=== PATIENT | female | born 2000 | race Caucasian/White ===

== ENCOUNTER → 2019-05-13 | Outpatient (REF) | payer OTHER ==
[2019-05-13 20:06] LABS: CHLAMYDIA DNA AMPLIFICATION NEGATIVE (NEGATIVE); GC DNA AMPLIFICATION NEGATIVE (NEGATIVE)
== END ==
LOC: M LAB REF 17:03
PROVIDERS: ATTEND Advanced Practice Midwife
DX: Z34.02 Encounter for supervision of normal first pregnancy, second trimester (principal)

== ENCOUNTER → 2019-05-27 | Outpatient (CLI) | payer OTHER ==
--- NOTE | 2019-05-27 22:42 | REP ---
Clinical: Anatomical evaluation. Comparison: None . Findings: Examination demonstrates a single live intrauterine in breech presentation. motion is identified by technologist. Placenta is noted anterior and grade zero without evidence for placenta previa or abruption. Amniotic fluid volume is normal. Cervix measures 4.1 cm in length and appears closed. No evidence for nuchal cord. Gestational age by LMP 20 weeks 6 days with CJ 10/08/2019 . Gestational age by current measurements 21 weeks 3 days with CJ 10/04/2019 . FHR equals 141 beats per minute. BPD 5.1 cm 21 weeks 3 days HC 18.8 cm 21 weeks 0 days AC 18.1 cm 23 weeks 0 days FL 3.5 cm 21 weeks 0 days HL 3.3 cm 20 weeks 6 days HC/AC ratio 1.04 Estimated weight 462 grams ( 83rd percentile based on age by LMP ). Anatomical assessment demonstrates normal structures including cranium, choroid plexus, cavum, cerebellum/posterior fossa, facial features, lungs, four-chamber heart/ventricular outflow tracts, diaphragm, stomach, cord insertion/three-vessel cord, bladder, and extremities. Limited evaluation of the kidneys and spine due to positioning. Impression: Single live intrauterine in breech presentation demonstrating appropriate interval growth. Limited evaluation of the kidneys and spine may warrant reevaluation and follow-up. Remainder of the anatomical assessment is complete and normal. Electronically Signed by Edgar Spears MD 05/27/2019 10:33 P
== END ==
LOC: M RAD 09:01 → EDUNIT# 09:30
PROVIDERS: ATTEND Advanced Practice Midwife
DX: Z36.89 Encounter for other specified antenatal screening (principal); Z3A.21 21 weeks gestation of pregnancy

== ENCOUNTER → 2019-07-03 | Outpatient (CLI) | payer OTHER ==
[2019-07-03 14:37] LABS: HEMOGLOBIN 9.9 g/dl (12.0-15.5); MEAN CORPUSCULAR HEMOGLOBIN 32.2 pg (27.0-33.0); MEAN CORPUSCULAR VOLUME 97.7 fl (80.0-96.0); PLATELET COUNT, AUTOMATED 202 10^3/uL (150-450); RED BLOOD COUNT 3.07 10^6/uL (4.00-5.40); WHITE BLOOD COUNT 7.5 10^3/uL (4.0-10.0)
--- NOTE | 2019-07-03 15:27 | REP ---
Obstetric sonography: History: Followup anatomy. Findings: Scanning through the gravid uterus demonstrates a viable single intrauterine gestation in a cephalic lie. motion is observed and heart rate is recorded at 147 beats per minute. An anterior grade 0 placenta is seen without evidence of previa or abruption. Amniotic fluid is subjectively normal. Closed cervical length is 3.8 cm, viewed transabdominally. No extrauterine abnormalities observed. There has been appropriate interval growth. No anomaly is seen. The following anatomic structures are identified and felt to be unremarkable: cranium, choroid plexus, cavum, cerebellum and posterior fossa, face and profile, lungs, four-chamber heart with left and right ventricular outflow tract views, diaphragm, left-sided stomach, abdominal wall cord insertion, three-vessel umbilical cord, kidneys and bladder, spine, upper and lower extremities. Biometry chart: BPD 6.9 cm = 27 weeks 5 days HC 25.3 cm = 27 weeks 3 days AC 22.8 cm = 27 weeks 1 day FL 5.0 cm = 26 weeks 6 days HL 4.4 cm = 26 weeks 2 days HC/AC ratio normal 1.11. Cephalic index normal 0.76. Estimated weight 1032 grams, 2 pounds 4 ounces, 71st percentile for 26 weeks 1 day. Impression: Viable single intrauterine gestation at 27 weeks 1 day by today's composite criteria. Expected gestational age estimate based on prior sonography 26 weeks 5 days. CJ by prior sonography October 04, 2019. In conjunction with prior sonography, anatomic survey is felt to be complete. Electronically Signed by Ahsan Angel MD 07/03/2019 09:04 P
[2019-07-04 11:30] LABS: HEPATITIS C VIRUS ABY INDEX 0.1 INDEX (<0.8)
== END ==
LOC: M RAD 10:19
PROVIDERS: ATTEND Advanced Practice Midwife
DX: Z36.89 Encounter for other specified antenatal screening (principal); Z3A.27 27 weeks gestation of pregnancy

== ENCOUNTER → 2019-07-08 | Outpatient (REF) | payer OTHER | LOC: M LAB REF 13:17 | PROVIDERS: ATTEND Advanced Practice Midwife | DX: Z34.02 Encounter for supervision of normal first pregnancy, second trimester (principal) ==

== ENCOUNTER → 2019-07-30 | Outpatient (REF) | payer OTHER | LOC: M LAB REF 13:16 | PROVIDERS: ATTEND Advanced Practice Midwife | DX: Z34.02 Encounter for supervision of normal first pregnancy, second trimester (principal); Z3A.00 Weeks of gestation of pregnancy not specified ==

== ENCOUNTER 2019-08-20 01:55 | Outpatient (CLI) | payer OTHER ==
[~2019-08-20] VITALS: Ht 162.6 cm; Wt 66.8 kg
[2019-08-20 02:16] VITALS: BP 117/56
[2019-08-20] MEDS ORDERED: LR 1,000 ML IV SCH (02:45)
[2019-08-20] MEDS ORDERED: LR 1,000 ML IV ONE (02:45)
[2019-08-20] MEDS ORDERED: PERCOCET 5MG/325MG TAB PO ONE (02:45)
[2019-08-20 03:05] LABS: APPEARANCE, URINE CLEAR (CLEAR); BACTERIA, URINE AUTO NEGATIVE (NEGATIVE); BILIRUBIN, URINE AUTO NEGATIVE (NEGATIVE); BLOOD, URINE BLOOD NEGATIVE (NEGATIVE); COLOR, URINE YELLOW (YELLOW); GLUCOSE, URINE (UA) AUTO NEGATIVE (NEGATIVE); KETONE, URINE AUTO NEGATIVE (NEGATIVE); LEUKOCYTE ESTERASE, URINE AUTO NEGATIVE (NEGATIVE); MUCUS, URINE SMALL (NEGATIVE); NITRITE, URINE AUTO NEGATIVE (NEGATIVE); PROTEIN, URINE AUTO NEGATIVE (NEGATIVE); RBC, URINE AUTO 0 /HPF (0-3); SPECIFIC GRAVITY URINE AUTO 1.005 (1.002-1.035); SQUAMOUS EPITHELIAL CELL UR AU 4 /HPF (0-6); UROBILINOGEN, URINE AUTO 0.2 mg/dL (0.0-2.0); WBC, URINE AUTO 0 /HPF (0-3)
[2019-08-20 03:57] LABS: HEMATOCRIT 33.6 % (36.0-47.0); HEMOGLOBIN 11.5 g/dl (12.0-15.5); MEAN CORPUSCULAR HEMOGLOBIN 33.3 pg (27.0-33.0); MEAN CORPUSCULAR HGB CONC 34.2 g/dl (32.0-36.5); MEAN CORPUSCULAR VOLUME 97.4 fl (80.0-96.0); PLATELET COUNT, AUTOMATED 218 10^3/uL (150-450); RED BLOOD COUNT 3.45 10^6/uL (4.00-5.40); WHITE BLOOD COUNT 9.6 10^3/uL (4.0-10.0)
--- NOTE | 2019-08-20 04:11 | REPVR ---
PROCEDURE INFORMATION: Exam: US Retroperitoneal Complete, Kidneys and Bladder. Exam date and time: 08/20/2019 3:29 AM Clinical history: 19 years old, female; Pain; Other: Flank; ; Additional info: 33 wks right flank pain TECHNIQUE: Imaging protocol: Real-time ultrasound of the retroperitoneum with image documentation. Complete exam focused on the kidneys and bladder. COMPARISON: No relevant prior studies available. FINDINGS: Right kidney: Right kidney is normal in size, shape and echotexture measuring 12.3 cm in length. No evidence of hydronephrosis, calculi or mass. Left kidney: Left kidney is normal in size, shape and echotexture measuring 11 cm in length. No evidence of hydronephrosis, calculi or mass. Bladder: Urinary bladder is decompressed. Other findings: Note is made of an IUP with cardiac activity identified at 144 beats per minute. IMPRESSION: Unremarkable appearance of the kidneys. No hydronephrosis. Electronically signed by: Edgar Virk On 08/20/2019 04:10:39 AM
[2019-08-20 05:50] VITALS: BP 129/60
[2019-08-20 07:03] LABS: ALBUMIN 2.7 GM/DL (3.2-5.2); ALT/SGPT 37 U/L (12-78); AMYLASE 34 U/L (25-115); BILIRUBIN,TOTAL 0.3 MG/DL (0.2-1.0); BLOOD UREA NITROGEN 8 MG/DL (7-18); CALCIUM LEVEL 8.9 MG/DL (8.5-10.1); CARBON DIOXIDE LEVEL 24 MEQ/L (21-32); CHLORIDE LEVEL 108 MEQ/L (98-107); GLOMERULAR FILTRATION RATE > 60.0 (>60); GLUCOSE, FASTING 100 MG/DL (70-100); LIPASE 139 U/L (73-393); POTASSIUM SERUM 3.8 MEQ/L (3.5-5.1); SODIUM LEVEL 140 MEQ/L (136-145)
--- NOTE | 2019-08-20 10:21 | DSES ---
DATE OF ADMISSION: 08/20/2019 DATE OF DISCHARGE: 08/20/2019 HISTORY OF PRESENT ILLNESS: The patient is a 19-year-old female who is a 1, para 0 at 33 weeks gestation with an estimated date of confinement (EDC) of 10/08/2019 based off of her last menstrual period and consistent with her first trimester ultrasound. The patient initiated care in her second trimester with [facility]. She was a transfer of care from [place], [place], and transferred to [facility] at 18 weeks and 6 days gestation. Her has been uncomplicated. The patient presented to labor and delivery with complaints of right back pain. She was recently diagnosed with a urinary tract infection (UTI) and started on antibiotic. The patient reports that she has not taken her antibiotic appropriately at this point. The patient reports her back pain is a 7 out of 10. She does not desire to take any pain medications. She has not tried anything to help with her pain at all. SHe does not recall anything that she did to hurt her back. The patient reports her pain to be spasmodic, it comes and goes. 24 hour diet recall includes a hotdog. The patient's has been uncomplicated. PAST MEDICAL HISTORY: No current problems. SURGICAL HISTORY: None. FAMILY HISTORY: Noncontributory. SOCIAL HISTORY: The patient is . She denies being a current smoker, she has a history of vaping. She denies any use of alcohol or illicit drug use. She denies any history of any sexually transmitted infections. PHYSICAL EXAMINATION: GENERAL: Alert and oriented times three. RESPIRATORY: Regular rate with no use of accessory muscles. Lungs are clear bilaterally. ABDOMEN: Gravid. Nontender to touch. Soft to palpation. MUSCULOSKELETAL: Pain with palpation in the right upper back. EXTREMITIES: No edema, no pitting, no clonus. heart rate is 135, moderate variability, positive accelerations, no decelerations. Contractions are occasional. Cervical examination: Closed, thick, posterior. VITAL SIGNS: Temperature 99.2, pulse 75, respiratory rate 18, blood pressure 117/56, repeated prior to discharge was temperature 98.5, pulse 85, respiratory rate 18, blood pressure 129/60. LABORATORIES: Renal ultrasound is negative. Normal kidneys. CBC: White blood cell count is 9.6, hemoglobin and hematocrit 11.5 and 33.6 with platelets of 218. Her CMP is normal liver enzymes, amylase normal, lipase 139. UA is normal. ASSESSMENT: 1. Intrauterine at 33 weeks gestation. 2. Pain associated with gallbladder. PLAN: Reviewed potential cause of pain to be gallstones. Reviewed normal laboratories with the patient. Reviewed low fat diet. The patient offered Tylenol and Percocet while present in labor and delivery and she declined both. The patient reports that her pain is 5 out of 10 compared to 7 out of 10 when she arrived. The patient discharged to home with and is to followup with her routine care. ROBERTA
== END 2019-08-20 07:43 | disposition home or self-care (01) ==
LOC: M LDO 01:55
PROVIDERS: ATTEND Advanced Practice Midwife
DX: O26.893 Other specified pregnancy related conditions, third trimester (principal); M54.9 Dorsalgia, unspecified; O99.89 Other specified diseases and conditions complicating pregnancy, childbirth and the puerperium; K82.9 Disease of gallbladder, unspecified; O47.03 False labor before 37 completed weeks of gestation, third trimester; Z3A.33 33 weeks gestation of pregnancy
CPT/HCPCS: 36415; 59025; 76775; 80053; 81001; 82150; 83690; 85027; 87086; G0378; G0463

== ENCOUNTER → 2019-09-13 | Outpatient (REF) | payer OTHER ==
[~2019-09-13] MED LIST: ACET-683 PO; FERR325T82 PO; IBUP80TA PO; PRENTAB9 PO
== END ==
LOC: M LAB REF 16:39
PROVIDERS: ATTEND Obstetrics & Gynecology
DX: Z34.03 Encounter for supervision of normal first pregnancy, third trimester (principal)

== ENCOUNTER 2019-09-20 15:03 | Inpatient (IN) | payer OTHER ==
[2019-09-20] VITALS (7 sets, daily range): BP systolic 114–146; BP diastolic 59–82
[~2019-09-20] VITALS: Ht 160 cm; Wt 69.4 kg
[2019-09-20] MEDS ORDERED: PRENTAB9 PO (15:12)
[2019-09-20] MEDS ORDERED: FERR325T82 PO (15:12)
[2019-09-20] MEDS ORDERED: LACTATED RINGER'S 1000 ML IV STA (16:07)
[2019-09-20] MEDS ORDERED: miSOPROStol 50 MCG 1/2 TAB (S0191) PO SCH (16:15)
--- NOTE | 2019-09-20 16:23 | HPEPDOC ---
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 PAYABLE History: No pertinent history Past Medical History Medical History Noncontributory Surgical History: Denies/None Family History Significant Family History: No pertinent family hx Social History Marital Status: Family situation: Spouse/partner home Psychosocial History: No pertinent psych hx * Smoker: former Smoker (vaping prior to ) Alcohol: Denies Drugs: denies Abuse Violence Screening Have you been hit/kicked/slapp: No Have you been sexually assault: No Imunizations Tdap status: current Influenza Status: current Allergies Coded Allergies: codeine (Verified Allergy, Unknown, HIVES, FAINTING, 08/20/19) Medications Scheduled Ferrous Sulfate (Iron) 325 Mg Tablet, 1 TAB PO DAILY No.137/Iron/Folic Acd ( Vitamin Tablet) 1 Each Tablet, 1 TAB PO DAILY Physical Examination Physical Examination GENERAL: Alert and oriented times three. BREAST: . ABDOMEN: Gravid and non-tender to touch. FETUS: Is vertex (VTX) by sterile vaginal examination (SVE), fetus is vertex ( VTX) by [employer]. HEART RATE: Regular rate and rhythm. LUNGS: Clear to auscultation (CTA). EXTREMITIES: No edema. No clonus. Deep tendon reflexes (DTRs) + 2. Pertinent Laboratoy Data Blood Type: O+ RBC Antibody Screen: Negative HIV: Negative Hepatitis B: Negative Hepatitis C: Negative Rapid Plasma Reagin: Nonreactive Rubella: Immune Chlamydia/Gonorrhea: Negative Group B Streptococcus: Negative Quad Screen Test: Negative (panorama low risk female) Glucose Tolerance Test: 107 Anatomy Ultrasound Ultrasound Date: May 27, 2019 Placenta Location: Anterior Normal Anatomy: Yes Placenta Previa: No Estimated Weight (grams): 462 (83%) Other Ultrasounds 03/06/2019, dating 9 weeks 1 day. 07/03/2019. Follow-up anatomy. Estimated weight 1032 g, 71 percentile. Remainder of anatomy within normal limits. 09/13/2019, cephalic presentation Steroid Therapy Steroid Therapy: No Vaginal Examination Dilation: Fingertip Effacement: 50% Station: -3 Cervical Consistency: Soft Cervical Position: Posterior Presentation: Cephalic presentation Assessment Heart Rate (FHR): 145 Variability: Moderate Accelerations: Positive Decelerations: None Tocometer Contractions: Yes Frequency: irregular Strength: palpated as mild Multi-drug resistant Organism: No history of MDRO Assessment/Plan Assessment Marlena is a 19-year-old (G) 1 para (P) 0 -0 -0-0 at 37 + 3 weeks by 9- week ultrasound. Presents to Labor and Delivery (L&D) for term induction of labor per consultation Dr. Grullon. Diagnosed with cholestasis today due to labs. Bile acids are pending. However, the AST is 66, that ALT is 136. She denies regular contractions, loss of fluid or bleeding. Reports good movement. Plan Admit and orient per consultation Dr. Grullon [employer] and consent. Diet: Regular. Group B Streptococcus (GBS), negative. Labs and intravenous (IV) per unit protocol. Counseled on misoprostol Pitocin and induction of labor (IOL). Lactated Ringers (LR): Bolus 500 mL, then saline lock. Patient plans to labor ad mary. is undecided regarding epidural Anticipate, normal spontaneous vaginal delivery. C-S as appropriate. Lillian Macias CNM Sep 20, 2019 16:23
[2019-09-20 16:25] LABS: HEMATOCRIT 34.5 % (36.0-47.0); HEMOGLOBIN 11.9 g/dl (12.0-15.5); MEAN CORPUSCULAR HEMOGLOBIN 33.2 pg (27.0-33.0); MEAN CORPUSCULAR HGB CONC 34.5 g/dl (32.0-36.5); MEAN CORPUSCULAR VOLUME 96.4 fl (80.0-96.0); PLATELET COUNT, AUTOMATED 198 10^3/uL (150-450); RED BLOOD COUNT 3.58 10^6/uL (4.00-5.40); WHITE BLOOD COUNT 6.1 10^3/uL (4.0-10.0)
[2019-09-20] MEDS ORDERED: hydrOXYzine 50 MG TAB PO SCH (21:00)
--- NOTE | 2019-09-20 22:36 | IPNPDOC ---
Text Note Date of Service The patient was seen on 09/20/19. NOTE Reports breathing with UC, rating pain 5-6/10 Cat I tracing UC Q 2-3 minutes x 45-60 seconds SVE softer, /-3, posterior John too often for misoprostol. Will start pitocin augmentation and provide IV sedation. VS,Fishbone, I+O VS, Fishbone, I+O Laboratory Tests 09/20/19 15:25 Vital Signs Date Time Temp Pulse Resp B/P (MAP) Pulse Ox O2 Delivery O2 Flow Rate FiO2 09/20/19 16:28 98.4 72 131/70 (90) 09/20/19 15:19 20 Lillian Macias CNM Sep 20, 2019 22:36
[2019-09-20] MEDS ORDERED: BUTORPHANOL 2 MG/ML INJ (J0595) IV ONE (22:45)
[2019-09-20] MEDS ORDERED: PROMETHAZINE INJ 25 MG/ML VIAL (J2550) IV ONE (22:45)
[2019-09-20] MEDS ORDERED: OXYTOCIN DRIP 30 UNITS in IV 1 EA IV SCH (22:45)
[2019-09-20] MEDS: LR 1,000 ML IV SCH (23:14)
[2019-09-21] VITALS (93 sets, daily range): BP systolic 103–171; BP diastolic 51–116
[2019-09-21] MEDS ORDERED: BUTORPHANOL 2 MG/ML INJ (J0595) IV ONE (02:30)
--- NOTE | 2019-09-21 03:04 | IPNPDOC ---
Text Note Date of Service The patient was seen on 09/21/19. NOTE Uncomfortable. Pitocin @ 6mu. Cat I tracing UC 2-3 minutes x 45-60 seconds SVE essentially unchanged Cooks catheter placed, inflated 60/40. Pt tolerated well VS,Fishbone, I+O VS, Fishbone, I+O Laboratory Tests 09/20/19 15:25 Vital Signs Date Time Temp Pulse Resp B/P (MAP) Pulse Ox O2 Delivery O2 Flow Rate FiO2 09/20/19 23:15 18 09/20/19 16:28 98.4 72 131/70 (90) Lillian Macias CNM Sep 21, 2019 03:04
[2019-09-21] MEDS ORDERED: FENTANYL 2MCG/ML ROPIVACAINE 0.2% IN 0.9% NACL 100ML IVBAG As Ordered ONE (04:48)
[2019-09-21] MEDS ORDERED: NALOXONE INJ 0.4 MG/1 ML VIAL (J2310) IV PRN (05:18)
[2019-09-21] MEDS: FENTANYL/ROPIVACAINE/NACL BAG 100 ML EPIDURAL SCH ×2 (05:18→12:26)
[2019-09-21] MEDS ORDERED: REFRIGERATOR IV KEYS XX PRN (05:18)
[2019-09-21] MEDS ORDERED: EPIDURAL COMMENT XX SCH (05:18)
[2019-09-21] MEDS ORDERED: ePHEDrine SULFATE 25 MG/5 ML(5MG/ML) SYRINGE IV PRN (05:18)
[2019-09-21] MEDS ORDERED: diphenhydrAMINE INJ 50MG/ML VIAL (J1200) IV PRN (05:18)
[2019-09-21] MEDS ORDERED: LACTATED RINGER'S 1000 ML IV PRN (05:18)
[2019-09-21] MEDS ORDERED: EPIDURAL/PCA KEYS XX PRN (05:18)
[2019-09-21] MEDS ORDERED: ONDANSETRON 4MG/2ML VIAL (J2405) IV PRN (05:18)
[2019-09-21] MEDS: LR 1,000 ML IV SCH ×2 (10:10→15:09)
[2019-09-22] VITALS (12 sets, daily range): BP systolic 120–165; BP diastolic 58–84
[2019-09-22] MEDS ORDERED: ACETAMINOPHEN 500 MG TAB PO PRN (01:15)
[2019-09-22] MEDS ORDERED: OXYTOCIN DRIP 30 UNITS in IV 1 EA IV ONE (01:15)
[2019-09-22] MEDS ORDERED: ACETAMINOPHEN TAB 650MG DOSE (2X325MG) PO PRN (01:15)
[2019-09-22] MEDS ORDERED: DIBUCAINE 1% OINTMENT 30GM TOP PRN (01:15)
[2019-09-22] MEDS ORDERED: IBUPROFEN 600 MG TAB PO PRN (01:15)
[2019-09-22] MEDS ORDERED: RHOGAM 300 MCG (1500 IU) INJ (J2790) IM SCH (01:15)
[2019-09-22] MEDS ORDERED: DOCUSATE SODIUM 100 MG CAP PO PRN (01:15)
[2019-09-22] MEDS ORDERED: METHYLERGONOVINE MALEATE 0.2 MG TAB PO PRN (01:15)
[2019-09-22] MEDS ORDERED: MEASLES,MUMPS,RUBELLA VACCINE INJ (MMR-II) (90707) SC SCH (01:15)
[2019-09-22] MEDS ORDERED: ONDANSETRON 4MG/2ML VIAL (J2405) IV PRN (01:15)
[2019-09-22 01:58] LABS: CORD GAS ABE V -7.1; CORD GAS HCO3 V 19.3 MEQ/L; CORD GAS O2 SAT V 67.6 %; CORD GAS PCO2 V 42.1 mmHg; CORD GAS PH V 7.28 UNITS; CORD GAS PO2 V 29.6 mmHg; CORD GAS SBC V 18.1 MEQ/L; CORD GAS TCO2 V 20.6 MEQ/L
[2019-09-22] MEDS: IBUPROFEN 800 MG TAB PO PRN ×2 (04:02→14:31)
[2019-09-22] MEDS: PRENATAL VITAMINS CHEWABLE TABLET PO SCH (08:02)
[2019-09-22 10:26] LABS: HEMATOCRIT 32.3 % (36.0-47.0); HEMOGLOBIN 10.9 g/dl (12.0-15.5); MEAN CORPUSCULAR HGB CONC 33.7 g/dl (32.0-36.5); MEAN CORPUSCULAR VOLUME 97.9 fl (80.0-96.0); PLATELET COUNT, AUTOMATED 199 10^3/uL (150-450); WHITE BLOOD COUNT 17.7 10^3/uL (4.0-10.0)
--- NOTE | 2019-09-22 15:01 | DN ---
DATE: 09/22/2019 PREDELIVERY DIAGNOSIS: 37 weeks cholestasis , labor induction. POSTDELIVERY DIAGNOSIS: 37 weeks cholestasis , labor induction. PROCEDURE: Spontaneous vaginal delivery. PROFESSOR OF CHEMISTRY: Dr. Real Kidd. ANESTHESIA: Epidural. ESTIMATED BLOOD LOSS: 300 mL. FINDINGS: A 7 pound, 1 ounce female , scores 2, 8 and 8. DELIVERY SUMMARY: After approximately 40 minutes second stage, the patient had spontaneous delivery of a 7 pound 1 ounce female infant, scores 2, 8 and 8, under epidural anesthesia. Loose nuchal cord times one was reduced. Moderate shoulder dystocia was encountered. This was relieved with Yessy maneuver, ramp maneuver and Lee' screw maneuver. Baby was handed to the mother and the cord was double clamped and cut. The placenta delivered spontaneously and appeared to be intact. Patient received intravenous (IV) Pitocin immediately after the of the placenta. There were no vaginal lacerations present. Sponge counts were correct.
[2019-09-23] MEDS: IBUPROFEN 800 MG TAB PO PRN ×3 (02:50→22:37)
[2019-09-23 06:48] VITALS: BP 136/79
[2019-09-23] MEDS: PRENATAL VITAMINS CHEWABLE TABLET PO SCH (13:47)
[2019-09-23 17:54] VITALS: BP 136/63
[2019-09-24 06:00] VITALS: BP 123/69
[2019-09-24] MEDS ORDERED: IBUP80TA PO (07:40)
[2019-09-24] MEDS ORDERED: ACET-683 PO (07:40)
[2019-09-24] MEDS: PRENATAL VITAMINS CHEWABLE TABLET PO SCH (09:00)
== END 2019-09-24 10:36 | disposition home or self-care (01) | DRG 807 ==
LOC: M LDI 15:03 → M OBS 09-22 03:22
PROVIDERS: ADMIT Advanced Practice Midwife; ATTEND Advanced Practice Midwife
PROC: 3E0P7GC Introduction of Other Therapeutic Substance into Female Reproductive, Via Natural or Artificial Opening (ICD-10-PCS; 2019-09-20)
PROC: 10E0XZZ Delivery of Products of Conception, External Approach (ICD-10-PCS; principal; 2019-09-22)
DX: O26.62 Liver and biliary tract disorders in childbirth (principal); Z37.0 Single live birth; O69.81X0 Labor and delivery complicated by cord around neck, without compression, not applicable or unspecified; O66.0 Obstructed labor due to shoulder dystocia; Z3A.37 37 weeks gestation of pregnancy

== ENCOUNTER → 2019-09-20 | Outpatient (CLI) | payer OTHER ==
[2019-09-20 13:26] LABS: HEMOGLOBIN 12.5 g/dl (12.0-15.5); MEAN CORPUSCULAR HEMOGLOBIN 33.3 pg (27.0-33.0); MEAN CORPUSCULAR HGB CONC 33.8 g/dl (32.0-36.5); MEAN CORPUSCULAR VOLUME 98.7 fl (80.0-96.0); PLATELET COUNT, AUTOMATED 204 10^3/uL (150-450); RED BLOOD COUNT 3.75 10^6/uL (4.00-5.40); WHITE BLOOD COUNT 6.8 10^3/uL (4.0-10.0)
[2019-09-20 13:55] LABS: ALBUMIN 2.7 GM/DL (3.2-5.2); BILIRUBIN,DIRECT 0.1 MG/DL (0.0-0.2); BILIRUBIN,TOTAL 0.3 MG/DL (0.2-1.0); TOTAL PROTEIN 6.1 GM/DL (6.4-8.2)
== END ==
LOC: M SMT 10:39
PROVIDERS: ATTEND Obstetrics & Gynecology
DX: O99.013 Anemia complicating pregnancy, third trimester (principal); L29.8 Other pruritus

== ENCOUNTER → 2020-03-09 | Outpatient (REF) | payer OTHER ==
[~2020-03-09] MED LIST changes: +DICL500C PO
== END ==
LOC: M SFHCWAGY 13:03
PROVIDERS: ATTEND Nurse Practitioner Women's Health
DX: R30.0 Dysuria (principal)

== ENCOUNTER → 2022-04-22 | Outpatient (CLI) | payer OTHER | LOC: M WHC 09:54 | PROVIDERS: ATTEND Obstetrics & Gynecology | DX: F52.6 Dyspareunia not due to a substance or known physiological condition (principal) ==

== ENCOUNTER → 2022-07-05 | Outpatient (CLI) | payer OTHER ==
[2022-07-05 14:52] LABS: BASO % 0.5 % (0.0-1.0); EOS # 0.1 10^3/uL (0.0-0.5); EOS % 0.8 % (0.0-3.0); HEMATOCRIT 36.1 % (36.0-47.0); LYMPH # 1.5 10^3/uL (1.5-5.0); LYMPH % 26.1 % (24.0-44.0); MEAN CORPUSCULAR HEMOGLOBIN 30.5 pg (27.0-33.0); MEAN CORPUSCULAR HGB CONC 33.2 g/dl (32.0-36.5); MEAN CORPUSCULAR VOLUME 91.9 fl (80.0-96.0); MONO # 0.4 10^3/uL (0.0-0.8); MONO % 6.1 % (2.0-8.0); NEUTROPHILS # 3.9 10^3/uL (1.5-8.5); NEUTROPHILS % 66.2 % (36.0-66.0); PLATELET COUNT, AUTOMATED 228 10^3/uL (150-450); RED BLOOD COUNT 3.93 10^6/uL (4.00-5.40); WHITE BLOOD COUNT 5.9 10^3/uL (4.0-10.0)
[2022-07-05 15:17] LABS: GC DNA AMPLIFICATION NEGATIVE (NEGATIVE)
[2022-07-05 15:54] LABS: HEPATITIS C VIRUS ABY INDEX < 0.0 INDEX (<0.8); HIV 1&2 SCREEN CENTAUR NEGATIVE (NEGATIVE)
== END ==
LOC: M PLALAB 10:51
PROVIDERS: ATTEND Obstetrics & Gynecology
DX: Z34.91 Encounter for supervision of normal pregnancy, unspecified, first trimester (principal); Z3A.00 Weeks of gestation of pregnancy not specified

== ENCOUNTER → 2022-08-29 | Outpatient (CLI) | payer OTHER | LOC: M WHC 10:05 | PROVIDERS: ATTEND Obstetrics & Gynecology | DX: Z34.92 Encounter for supervision of normal pregnancy, unspecified, second trimester (principal); Z3A.18 18 weeks gestation of pregnancy ==